=== PATIENT | male | born 1995 | race Two or more races ===

== ENCOUNTER 2017-02-25 15:38 | Emergency (ER) | payer MEDICAID ==
[~2017-02-25] VITALS: Ht 188 cm; Wt 63.5 kg
[2017-02-25 15:52] VITALS: BP 129/74
== END 2017-02-25 16:31 | disposition home or self-care (01) ==
LOC: ER 15:41
DX: S92.504A Nondisplaced unspecified fracture of right lesser toe(s), initial encounter for closed fracture (principal); X58.XXXA Exposure to other specified factors, initial encounter; Y93.75 Activity, martial arts; Y92.89 Other specified places as the place of occurrence of the external cause; Y99.8 Other external cause status
CPT/HCPCS: 73630; 99284; A4606; Z7610